=== PATIENT | female | born 2000 | race Caucasian/White ===

== ENCOUNTER 2024-09-18 14:07 | Emergency (ER) | payer MEDICAID ==
[~2024-09-18] VITALS: Ht 167.6 cm; Wt 91.0 kg
[2024-09-18 14:12] VITALS: O2SAT 98
[2024-09-18] MEDS: HALOPERIDOL LACTATE 5MG/ML VIAL IM NR (15:13)
[2024-09-18] MEDS: DIPHENHYDRAMINE 50MG/ML VIAL IV NR (15:14)
[2024-09-18] MEDS: ATIVAN 2 MG/ML IV NR (15:15)
[2024-09-18 17:00] VITALS: TEMP 36.5
[2024-09-18 21:00] VITALS: BP 114/70; PULSE 81; RESP 12; O2SAT 97
== END 2024-09-18 21:15 | disposition home or self-care (01) ==
LOC: ER 14:07
DX: F41.1 Generalized anxiety disorder (principal); F43.0 Acute stress reaction; J45.909 Unspecified asthma, uncomplicated; E86.0 Dehydration
CPT/HCPCS: 99285; 96374; 96375; 93005; 96372; J1200; J1630; J2060